=== PATIENT | male | born 1960 | race Hispanic/Latino ===

== ENCOUNTER 2020-10-23 15:27 | Emergency (ER) | payer SELFPAY ==
[2020-10-23] MEDS ORDERED: LIDOCAINE 1% MPF 5 ML VIAL ONE (21:49)
[2020-10-23] MEDS ORDERED: IBUPROFEN 400 MG TAB ONE (21:50)
[2020-10-23] MEDS ORDERED: BUPIVACAINE 0.5% PF 10 ML VIAL ONE (21:50)
[2020-10-23] MEDS ORDERED: HYDROCODONE/APAP 7.5/325 MG TAB ONE (21:55)
--- NOTE | 2020-10-23 22:14 | ER ---
Nurse's Notes [facility] Name: Branden Castellanos Age: 59 yrs Sex: Male : 1960 Arrival Date: 10/23/2020 Time: 15:30 Bed 19 Private MD: Diagnosis: Cellulitis of left finger-with Paronychia of Left Small Finger Presentation: 10/23 15:41 Chief complaint: Patient states: Left hand 5th digit pain and swelling to nailbed area ll1 for 4 days. Tried to poke it with a needle 3 days ago. Site is red, swollen. No drainage at this time. Coronavirus screen: Client denies travel out of the [place] in the last 14 days. At this time, the client does not indicate any symptoms associated with coronavirus-19. Ebola Screen: Patient denies travel to an Ebola-affected area in the 21 days before illness onset. Initial Sepsis Screen: Does the patient meet any 2 criteria? No. Patient's initial sepsis screen is negative. Does the patient have a suspected source of infection? Yes: Skin breakdown/wound. Risk Assessment: Do you want to hurt yourself or someone else? Patient reports no desire to harm self or others. Onset of symptoms was October 20, 2020. 15:41 Method Of Arrival: Ambulatory ll1 15:41 Acuity: VIVIENNE 3 ll1 Historical: - Allergies: 15:41 No Known Allergies; ll1 - PMHx: 15:41 Diabetes - NIDDM; neuropathy; ll1 - PSHx: 15:41 None; ll1 - Immunization history:: Flu vaccine is not up to date. - Social history:: Smoking status: Patient denies any tobacco usage or history of. Screenin:40 Abuse screen: Denies threats or abuse. Denies injuries from another. Nutritional sg screening: No deficits noted. Tuberculosis screening: No symptoms or risk factors identified. Never had TB. Fall Risk None identified. Assessment: 21:40 General: Appears in no apparent distress. uncomfortable, Behavior is calm, cooperative. vg1 Pain: Complains of pain in left little fingernail Pain currently is 8 out of 10 on a pain scale. Quality of pain is described as throbbing, Pain began 4 days ago. Neuro: Level of Consciousness is awake, alert, obeys commands, Oriented to person, place, time, situation. 21:40 Cardiovascular: Patient's skin is warm and dry. Respiratory: Airway is patent vg1 Respiratory effort is even, unlabored, Respiratory pattern is regular, symmetrical. GI: No signs and/or symptoms were reported involving the gastrointestinal system. : No signs and/or symptoms were reported regarding the genitourinary system. EENT: No signs and/or symptoms were reported regarding the EENT system. Derm: Fifth digit on left hand red and swollen. Musculoskeletal: Circulation, motion, and sensation intact. Vital Signs: 15:41 BP 140 / 88; Pulse 73; Resp 17; Temp 98.2; Pulse Ox 100% ; Weight 89.81 kg; Height 5 ll1 ft. 11 in. (180.34 cm); Pain 10/10; 21:40 BP 147 / 92; Pulse 69; Resp 18; Pulse Ox 100% on R/A; vg1 15:41 Body Mass Index 27.62 (89.81 kg, 180.34 cm) ll1 ED Course: 15:30 Patient arrived in ED. rg4 15:40 Arm band placed on. ll1 15:43 Triage completed. ll1 20:49 Mak Calixto PA is PHCP. cp 20:49 Mak Guzmán MD is Attending Physician. cp 20:55 Holly House, DELGADO is Primary Nurse. vg1 22:10 Mart Ibarra MD is Referral Physician. cp 22:40 Patient has correct armband on for positive identification. Bed in low position. Pulse sg ox on. NIBP on. 22:40 No provider procedures requiring assistance completed. Patient did not have IV access sg during this emergency room visit. Administered Medications: 21:45 Drug: Hydrocodone-Acetaminophen (7.5 mg-325 mg) 1 tabs {Note: rass 0.} Route: PO; vg1 22:00 Follow up: Response: No adverse reaction; Pain is decreased sg 21:45 Drug: Ibuprofen 800 mg Route: PO; vg1 22:00 Follow up: Response: No adverse reaction; Pain is decreased sg 21:45 Drug: Lidocaine (1 %) 5 mg Route: Infiltration; vg1 21:45 Drug: Marcaine (0.5 %) 5 ml Volume: 10 ml; Route: Infiltration; vg1 22:40 Drug: Bactrim (160 mg-800 mg (DS) 1 tablet Route: PO; sg 22:50 Follow up: Response: No adverse reaction sg 22:40 Drug: Doxycycline 100 mg Route: PO; sg 22:50 Follow up: Response: No adverse reaction Outcome: 22:13 Discharge ordered by . sergey 22:40 Discharged to home ambulatory. 22:40 Condition: good 22:40 Discharge instructions given to patient, Instructed on discharge instructions, follow up and referral plans. safety practices, Demonstrated understanding of instructions, follow-up care, medications, wound care, Prescriptions given X 4. 22:43 Patient left the ED. vg1 Addendum: 10/27/2020 07:29 Addendum: Culture Results: Positive wound culture. No further action required. Bacteria e b sensitive to prescribed antibiotic. Signatures: Tj Rodríguez, RN RN sg Mak Calixto PA PA cp Garcia, Rubi rg4 Staci Gonzalez Victoria RN RN vg1 Jossy Smith RN RN ll1
--- NOTE | 2020-10-23 22:14 | EDPHYS ---
Physician Documentation [facility] Name: Branden Castellanos Age: 59 yrs Sex: Male : 1960 Arrival Date: 10/23/2020 Time: 15:30 Bed 19 Private MD: ED Physician Mak Guzmán HPI: 10/23 21:00 This 59 yrs old Male presents to ER via Ambulatory with complaints of Finger cp Swelling. 21:00 The patient or guardian reports pain, swelling, tenderness. The complaints affect the cp distal phalanx left small finger. 21:00 Context: resulted from an unknown cause. Onset: The symptoms/episode began/occurred 4 cp day(s) ago. Associated signs and symptoms: Pertinent negatives: cyanosis distally, decreased sensation distally, fever. Historical: - Allergies: 15:41 No Known Allergies; ll1 - PMHx: 15:41 Diabetes - NIDDM; neuropathy; ll1 - PSHx: 15:41 None; ll1 - Immunization history:: Flu vaccine is not up to date. - Social history:: Smoking status: Patient denies any tobacco usage or history of. ROS: 21:10 MS/extremity: Positive for erythema, pain, swelling, tenderness, warmth, of the distal cp phalanx left small finger, Negative for injury or acute deformity, paresthesias. 21:10 Constitutional: Negative for fever. cp 21:10 All other systems are negative. Exam: 21:15 Constitutional: The patient appears in no acute distress, alert, awake, non-toxic, well cp developed, well nourished. 21:15 Head/Face: Normocephalic, atraumatic. cp 21:15 Chest/axilla: Inspection: normal. 21:15 Cardiovascular: Rate: normal. 21:15 Respiratory: the patient does not display signs of respiratory distress, Respirations: normal, no use of accessory muscles, labored breathing, is not present. 21:15 Skin: abscess, that is small, of the proximal to nail dorsum left small finger, with fluctuance, that is mild, with surrounding cellulitis, that is mild. Vital Signs: 15:41 BP 140 / 88; Pulse 73; Resp 17; Temp 98.2; Pulse Ox 100% ; Weight 89.81 kg; Height 5 ll1 ft. 11 in. (180.34 cm); Pain 10/10; 21:40 BP 147 / 92; Pulse 69; Resp 18; Pulse Ox 100% on R/A; vg1 15:41 Body Mass Index 27.62 (89.81 kg, 180.34 cm) ll1 Procedures: 22:15 I \T\ D: Incision and drainage was performed for an abscess of the proximal to nail cp dorsum left small finger Prepped with Betadine, Anesthetized with digital block using 5 ccs of 1% lidocaine w/o epi and 0.5% marcaine. Incised with #11 blade. Drained small amount purulent fluid. Dressing: sterile 4x4 gauze, the patient tolerated the procedure well. MDM: 20:51 Patient medically screened. [facility] 22:12 Data reviewed: vital signs, nurses notes, and as a result, I will discharge patient. 22:12 Response to treatment: the patient's symptoms have markedly improved after treatment, and as a result, I will discharge patient. 10/23 22:23 Order name: Wound Culture 10/23 20:53 Order name: I\T\D Setup; Complete Time: 22:17 cp Administered Medications: 21:45 Drug: Hydrocodone-Acetaminophen (7.5 mg-325 mg) 1 tabs {Note: rass 0.} Route: PO; vg1 22:00 Follow up: Response: No adverse reaction; Pain is decreased sg 21:45 Drug: Ibuprofen 800 mg Route: PO; vg1 22:00 Follow up: Response: No adverse reaction; Pain is decreased sg 21:45 Drug: Lidocaine (1 %) 5 mg Route: Infiltration; vg1 21:45 Drug: Marcaine (0.5 %) 5 ml Volume: 10 ml; Route: Infiltration; vg1 22:40 Drug: Bactrim (160 mg-800 mg (DS) 1 tablet Route: PO; sg 22:50 Follow up: Response: No adverse reaction sg 22:40 Drug: Doxycycline 100 mg Route: PO; sg 22:50 Follow up: Response: No adverse reaction sg Disposition: 22:45 Chart complete. 10/24 05:39 Co-signature as Attending Physician, Mak Guzmán MD I agree with the assessment and [facility] plan of care. Disposition: 10/23/20 22:13 Discharged to Home. Impression: Cellulitis of left finger - with Paronychia of Left Small Finger. - Condition is Stable. - Discharge Instructions: Cellulitis, Adult, Paronychia. - Prescriptions for Ibuprofen 800 mg Oral Tablet - take 1 tablet by ORAL route every 8 hours As needed take with food; 30 tablet. Tylenol- Codeine #3 300-30 mg Oral Tablet - take 2 tablets by ORAL route every 8 hours As needed; 15 tablet. Doxycycline Hyclate 100 mg Oral Tablet - take 1 tablet by ORAL route every 12 hours; 20 tablet. Bactrim DS 800- 160 mg Oral Tablet - take 1 tablet by ORAL route every 12 hours for 10 days; 20 tablet. - Work release form, Medication Reconciliation Form, Thank You Letter, Antibiotic Education, Prescription Opioid Use form. - Follow up: Mart Ibarra MD; When: 1 - 2 days; Reason: Worsening of condition. - Problem is new. - Symptoms have improved. Signatures: Dispatcher [employer] EDMS Tj Rodríguez RN RN Mak Pressley MD MD cha Page, Corey, PA PA cp Holly House RN RN vg1 Jossy Smith RN RN ll1 Corrections: (The following items were deleted from the chart) 10/23 22:43 22:13 10/23/2020 22:13 Discharged to Home. Impression: Cellulitis of left finger - with vg1 Paronychia of Left Small Finger. Condition is Stable. Forms are Medication Reconciliation Form, Thank You Letter, Antibiotic Education, Prescription Opioid Use. Follow up: Mart Ibarra; When: 1 - 2 days; Reason: Worsening of condition. Problem is new. Symptoms have improved. cp
[2020-10-23] MEDS ORDERED: SMZ./TMP. 800/160 MG TABLET ONE (22:51)
[2020-10-23] MEDS ORDERED: DOXYCYCLINE 100 MG CAP PO ONE (22:51)
== END 2020-10-23 22:43 | disposition home or self-care (01) ==
LOC: ER 15:27
PROC: 0J9K0ZZ Drainage of Left Hand Subcutaneous Tissue and Fascia, Open Approach (ICD-10-PCS; principal; 2020-10-23)
DX: L03.012 Cellulitis of left finger (principal)
CPT/HCPCS: 87070; 87077; 87186; 87205; 99283

== ENCOUNTER 2021-03-29 11:43 | Inpatient (IN) | payer SELFPAY ==
[2021-03-29 13:00] LABS: Absolute Lymphocytes (CBC) 1.7 K/uL (0.7-4.9); Basophils % 0.5 % (0-1.3); Hematocrit 45.6 % (39.6-49.0); Lymphocytes % 11.4 % (15.3-44.8); MPV 8.6 fL (7.6-11.3); RBC Red Blood Cell Count 5.33 M/uL (4.33-5.43)
[2021-03-29] MEDS ORDERED: ONDANSETRON 4 MG/2 ML VIAL ONE (13:04)
[2021-03-29] MEDS ORDERED: MEPERIDINE HCL 25 MG/ML SYR ONE (13:05)
[2021-03-29] MEDS ORDERED: NA CHLORIDE 0.9% 1,000 ML ONE ×2 (13:05→16:00)
[2021-03-29 13:17] LABS: Potassium 3.7 mmol/L (3.5-5.1)
[2021-03-29 13:19] LABS: Protime INR 1.21
[2021-03-29 13:40] LABS: Platelet Estimate ADEQ
[2021-03-29 13:41] LABS: Blood Morphology Comment NOT SEEN (NOT SEEN)
[2021-03-29 14:11] LABS: Urine Blood Trace-lysed (Negative); Urine Glucose 2+ (Negative); Urine Protein 1+ (Negative)
--- NOTE | 2021-03-29 14:20 | RAD REPORT ---
EXAM DESCRIPTION: US - Scrotum Testicles - 03/29/2021 2:04 pm CLINICAL HISTORY: right testicular pain and fever COMPARISON: No comparisons FINDINGS: No mass identified within either testicle. Blood flow was demonstrated within each testicl e. Right-sided testicle shows increased blood flow relative the left. There is an enlarged hyperemic right epididymis. No significant hydrocele. No extratesticular mass or hernia demonstrated. IMPRESSION: Right epididymo-orchitis pattern.
--- NOTE | 2021-03-29 14:23 | RAD REPORT ---
EXAM DESCRIPTION: CT - Abdomen Pelvis W Contrast - 03/29/2021 1:55 pm CLINICAL HISTORY: fever, lower abd pain COMPARISON: No comparisons TECHNIQUE: Biphasic, helical CT imaging of the abdomen and pelvis was performed following 100 ml non -ionic IV contrast. No oral contrast given. All CT scans are performed using dose optimization technique as appropriate and may include automated exposure control or mA/KV adjustment according to patient size. FINDINGS: No suspicious findings in the lung bases. Mild diffuse fatty infiltration of the liver seen. No focal liver lesion. No portal vein abnormality. Spleen and pancreas show no suspicious findings. Gallbladder and biliary tree are also without suspi cious finding. Symmetric renal function is seen with no hydronephrosis or suspicious renal mass. No pyelonephritis o r acute parenchymal process. Multiple left renal cysts are present without suspicious characteristic. Urinary bladder is only partially filled. No gross abnormality. No gross prostate gland abnormality seen. Right seminal vesicle enlarged relative to the left. No abnormal congestion or edema. No adrena l abnormalities. No dilated bowel loops or bowel wall thickening. Appendix is normal. Only minimal amounts of divertic ulosis present. No free air, free fluid or inflammatory stranding. Small fat filled right inguinal h ernia present. No mass or bulky lymphadenopathy. No suspicious bony findings. Disc and bone degenerative changes are present. No clearly pathologic pr ocess seen. IMPRESSION: Contrast enhanced CT abdomen and pelvis showing no acute or emergent finding. Diffuse fatty infiltration of the liver.
[2021-03-29 14:30] LABS: Urine Bacteria <20 /HPF (NONE SEEN); Urine RBC <5 /HPF (NONE SEEN)
[2021-03-29] MEDS ORDERED: CIPROFLOXACIN 400mg IV 400 MG/200 ML BAG IV ONE (14:39)
[2021-03-29] MEDS ORDERED: CEFTRIAXONE/SWI 1gm 1 GM/10 ML SYR ONE (14:39)
--- NOTE | 2021-03-29 14:49 | ER ---
Nurse's Notes [facility] Name: Branden Castellanos Age: 60 yrs Sex: Male : 1960 Arrival Date: 03/29/2021 Time: 11:47 Bed 17 Private MD: Diagnosis: Epididymo-orchitis;Dehydration;Sepsis, unspecified organism Presentation: 03/29 12:05 Chief complaint: Patient states: Right testicular pain, lower abdomen pain. Currently rb3 being treated for a bladder infection, but it is not getting better. 12:05 Coronavirus screen: At this time, the client does not indicate any symptoms associated rb3 with coronavirus-19. Ebola Screen: Patient denies travel to an Ebola-affected area in the 21 days before illness onset. Initial Sepsis Screen:. Risk Assessment: Do you want to hurt yourself or someone else? Patient reports no desire to harm self or others. 12:05 Method Of Arrival: Wheelchair rb3 12:05 Acuity: VIVIENNE 3 rb3 12:05 Initial Sepsis Screen: Does the patient meet any 2 criteria? No. Patient's initial rb3 sepsis screen is negative. Does the patient have a suspected source of infection? No. Patient's initial sepsis screen is negative. Onset of symptoms is unknown. Triage Assessment: 12:05 General: Appears uncomfortable, Behavior is calm, cooperative, Reports fever for. Pain: rb3 Complains of pain in right testicle, lower abdomen, right groin Pain radiates to right leg Pain currently is 10 out of 10 on a pain scale. Neuro: Level of Consciousness is awake, alert, obeys commands, Oriented to person, place, time, situation. Cardiovascular: Patient's skin is warm and dry. Respiratory: Airway is patent Respiratory effort is even, unlabored, Respiratory pattern is regular, symmetrical. GI: Reports nausea. : Reports pain testicle, with urination, Dribbles when urinating. Historical: - Allergies: 12:05 No Known Allergies; rb3 - PMHx: 12:05 Diabetes - NIDDM; neuropathy; Bladder infections; rb3 - PSHx: 12:05 Tonsillectomy; rb3 - Immunization history:: Adult Immunizations up to date. - Social history:: Smoking status: Patient/guardian denies using. - Family history:: not pertinent. - Hospitalizations: : No recent hospitalization is reported. Screenin:05 Abuse screen: Denies threats or abuse. Nutritional screening: No deficits noted. rb3 Tuberculosis screening: No symptoms or risk factors identified. Fall Risk None identified. Assessment: 12:05 General: See triage assessment. rb3 13:00 Reassessment: Patient appears in no apparent distress at this time. Patient and/or rb3 family updated on plan of care and expected duration. Pain level reassessed. Patient is alert, oriented x 3, equal unlabored respirations, skin warm/dry/pink. 14:00 Reassessment: Patient appears in no apparent distress at this time. No changes from rb3 previously documented assessment. 15:00 Reassessment: Patient appears in no apparent distress at this time. Patient and/or rb3 family updated on plan of care and expected duration. Pain level reassessed. Patient is alert, oriented x 3, equal unlabored respirations, skin warm/dry/pink. 15:45 Reassessment: Dr. Madhav Douglas at the pt. bedside. rb3 16:00 Reassessment: Patient appears in no apparent distress at this time. Patient and/or rb3 family updated on plan of care and expected duration. Pain level reassessed. Patient is alert, oriented x 3, equal unlabored respirations, skin warm/dry/pink. 16:48 Reassessment: Patient appears in no apparent distress at this time. No changes from rb3 previously documented assessment. 17:00 Reassessment: Gave report to DELGADO Black. Information from the [facility] was given. All rb3 questions asked and answered. 17:34 Reassessment: Patient appears in no apparent distress at this time. Patient and/or rb3 family updated on plan of care and expected duration. Pain level reassessed. Patient is alert, oriented x 3, equal unlabored respirations, skin warm/dry/pink. Vital Signs: 12:05 BP 120 / 73; Pulse 88; Resp 20; Pulse Ox 99% ; rb3 13:00 BP 129 / 78; Pulse 93; Resp 20; Pulse Ox 98% ; Weight 88 kg; Height 5 ft. 8 in. (172.72 rb3 cm); 14:00 BP 131 / 53; Pulse 82; Resp 22; Pulse Ox 100% ; rb3 15:00 BP 127 / 72; Pulse 82; Resp 16; Pulse Ox 98% ; rb3 16:00 BP 139 / 73; Pulse 78; Resp 21; Temp 98.1; Pulse Ox 100% ; rb3 16:48 BP 134 / 7; Pulse 81; Resp 21; Temp 98.1; Pulse Ox 99% ; rb3 17:34 BP 122 / 70; Pulse 82; Resp 19; Pulse Ox 97% on R/A; rb3 13:00 Body Mass Index 29.50 (88.00 kg, 172.72 cm) rb3 ED Course: 11:47 Patient arrived in ED. am2 12:04 Robert Douglas MD is Attending Physician. rn 12:05 Arm band placed on right wrist. rb3 12:05 Patient has correct armband on for positive identification. Bed in low position. Call rb3 light in reach. Side rails up X 1. conveyor monitor on. Pulse ox on. NIBP on. Warm blanket given. 12:21 Mable Chua RN is Primary Nurse. rb3 12:24 Triage completed. rb3 12:50 Inserted saline lock: 20 gauge in right antecubital area, using aseptic technique. dh4 Blood collected. 13:55 CT Abd/Pelvis - IV Contrast Only In Process Unspecified. EDMS 14:04 US Scrotum Testicles In Process Unspecified. EDMS 14:48 Madhav Douglas MD is Hospitalizing Provider. rn 17:35 No provider procedures requiring assistance completed. Patient admitted, IV remains in rb3 place. Administered Medications: 12:54 Drug: Demerol (meperidine) 25 mg Route: IVP; Site: right antecubital; rb3 13:10 Follow up: Response: No adverse reaction; Pain is decreased rb3 12:54 Drug: NS 0.9% 1000 ml Route: IV; Rate: 1000 ml; Site: right antecubital; rb3 12:54 Drug: Zofran (Ondansetron) 4 mg Route: IVP; Site: right antecubital; rb3 13:08 Follow up: Response: No adverse reaction rb3 14:20 Drug: Rocephin (cefTRIAXone) 1 grams Route: IV; Rate: calculated rate; Site: right aa5 antecubital; 14:35 Follow up: Response: No adverse reaction; IV Status: Completed infusion rb3 14:25 Drug: Cipro (ciprofloxacin) 400 mg Volume: 200 ml; Route: IVPB; Infused Over: 60 mins; aa5 Site: right antecubital; 15:34 Follow up: Response: No adverse reaction; IV Status: Completed infusion rb3 15:44 Drug: NS 0.9% 1000 ml Route: IV; Rate: 1000 ml; Site: right antecubital; rb3 16:52 Follow up: IV Status: Completed infusion rb3 Outcome: 14:48 Decision to Hospitalize by Provider. rn 17:35 Admitted to Tele accompanied by tech, via stretcher, room 410, with chart, Report rb3 called to DELGADO Black 17:35 Condition: stable 17:35 Instructed on the need for admit. 17:39 Patient left the ED. rb3 Signatures: Dispatcher [employer] EDMS Robert Douglas MD MD rn Calderon, Audri RN RN aa5 Humera Hanson 2 Bean Flores 4 Mable Chua, RN RN rb3 Corrections: (The following items were deleted from the chart) 17:00 13:00 BP 129 / 78; Pulse 93bpm; Resp 20bpm; Pulse Ox 98%; rb3 rb3
--- NOTE | 2021-03-29 14:49 | EDPHYS ---
Physician Documentation [facility] Name: Branden Castellanos Age: 60 yrs Sex: Male : 1960 Arrival Date: 03/29/2021 Time: 11:47 Bed 17 Private MD: ED Physician Robert Douglas HPI: 03/29 13:21 This 60 yrs old Male presents to ER via Wheelchair with complaints of rn Testicular Pain, Groin Pain. 13:21 The patient presents with scrotal pain, of the right side, without swelling, rn tenderness, urinary symptoms. 13:24 Onset: The symptoms/episode began/occurred 1 week(s) ago. Modifying factors: the rn symptoms are aggravated by. Modifying factors: the symptoms are aggravated by urinating. Associated signs and symptoms: Pertinent positives: abdominal pain, dysuria, fever, nausea. Severity of symptoms: At their worst the symptoms were moderate, in the emergency department the symptoms are unchanged. The patient has not experienced similar symptoms in the past. The patient has been recently seen by a physician:. Reports being treated for UTI after virtual visit this past week, taking keflex, reports fever/chills/right testicular pain, abd pain, nausea. No trauma. + hx of UTI. . Historical: - Allergies: 12:05 No Known Allergies; rb3 - PMHx: 12:05 Diabetes - NIDDM; neuropathy; Bladder infections; rb3 - PSHx: 12:05 Tonsillectomy; rb3 - Immunization history:: Adult Immunizations up to date. - Social history:: Smoking status: Patient/guardian denies using. - Family history:: not pertinent. - Hospitalizations: : No recent hospitalization is reported. ROS: 13:24 Constitutional: + fever and chills Eyes: Negative for injury, pain, redness, and nursery rn, ENT: Negative for injury, pain, and discharge, Neck: Negative for injury, pain, and swelling, Cardiovascular: Negative for chest pain, palpitations, and edema, Respiratory: Negative for shortness of breath, cough, wheezing, and pleuritic chest pain, Abdomen/GI: + lower abd pain and nausea Back: Negative for injury and pain, : Negative for injury, bleeding, + right testicular pain MS/Extremity: Negative for injury and deformity, Skin: Negative for injury, rash, and discoloration, Neuro: Negative for headache, numbness, tingling, and seizure. Exam: 13:24 Constitutional: This is a well developed, well nourished patient who is awake, rn alert,sitting in wheelchair, appears weak all over Head/Face: Normocephalic, atraumatic. Eyes: Pupils equal round and reactive to light, extra-ocular motions intact. Lids and lashes normal. Conjunctiva and sclera are non-icteric and not injected. Cornea within normal limits. Periorbital areas with no swelling, redness, or edema. ENT: dry MM Cardiovascular: Regular rate and rhythm. No pulse deficits. Respiratory: No increased work of breathing, no retractions or nasal flaring. Abdomen/GI: Soft, + mild lower abd tenderness Skin: Warm, dry with normal turgor. Normal color with no rashes, no lesions, and no evidence of cellulitis. MS/ Extremity: Pulses equal, no cyanosis. Neurovascular intact. Full, normal range of motion. Equal circumference. Neuro: Awake and alert, GCS 15, oriented to person, place, time, and situation. Cranial nerves II-XII grossly intact. Motor strength 4/5 in all extremities. Sensory grossly intact. 13:33 ECG was reviewed by the Attending Physician. rn Vital Signs: 12:05 BP 120 / 73; Pulse 88; Resp 20; Pulse Ox 99% ; rb3 13:00 BP 129 / 78; Pulse 93; Resp 20; Pulse Ox 98% ; Weight 88 kg; Height 5 ft. 8 in. (172.72 rb3 cm); 14:00 BP 131 / 53; Pulse 82; Resp 22; Pulse Ox 100% ; rb3 15:00 BP 127 / 72; Pulse 82; Resp 16; Pulse Ox 98% ; rb3 16:00 BP 139 / 73; Pulse 78; Resp 21; Temp 98.1; Pulse Ox 100% ; rb3 16:48 BP 134 / 7; Pulse 81; Resp 21; Temp 98.1; Pulse Ox 99% ; rb3 17:34 BP 122 / 70; Pulse 82; Resp 19; Pulse Ox 97% on R/A; rb3 13:00 Body Mass Index 29.50 (88.00 kg, 172.72 cm) rb3 MDM: 12:04 Patient medically screened. rn 13:33 ED course: U/S shows acute epididymitis, good blood flow to testes. . rn 14:46 Differential diagnosis: UTI, prostatitis, urethritis, epididymitis. Data reviewed: rn vital signs, nurses notes, lab test result(s), radiologic studies, CT scan, ultrasound, and as a result, I will admit patient. Counseling: I had a detailed discussion with the patient and/or guardian regarding: the historical points, exam findings, and any diagnostic results supporting the discharge/admit diagnosis, lab results, radiology results, the need for further work-up and treatment in the hospital. Response to treatment: the patient's symptoms have mildly improved after treatment, and as a result, I will admit patient. Admission orders: after a detailed discussion of the patient's condition and case, the admit orders are written by me. ED course: Pt with elevated lactate and procal, + epididymitis, will admit to Dr. Douglas for further care. . 03/29 12:23 Order name: Urine Culture 03/29 12:23 Order name: Basic Metabolic Panel; Complete Time: 13:47 03/29 12:23 Order name: Blood Culture Adult (2) 03/29 12:23 Order name: CBC with Diff; Complete Time: 13:47 03/29 12:23 Order name: Lactate; Complete Time: 13:47 rn 03/29 12:23 Order name: Procalcitonin; Complete Time: 13:47 rn 03/29 12:23 Order name: Protime (+inr); Complete Time: 13:47 03/29 12:23 Order name: Ptt, Activated; Complete Time: 13:47 rn 03/29 12:23 Order name: Urine Microscopic Only rn 03/29 13:39 Order name: Manual Differential; Complete Time: 13:47 EDMT 03/29 14:10 Order name: Urine Dipstick-Ancillary; Complete Time: 14:24 EDMT 03/29 14:36 Order name: Glucose, Ancillary Testing EDMT 03/29 12:23 Order name: Cardiac monitoring; Complete Time: 13:38 rn 03/29 12:23 Order name: EKG - Nurse/Tech; Complete Time: 13:38 rn 03/29 12:23 Order name: IV Saline Lock - Large Bore; Complete Time: 12:50 rn 03/29 12:23 Order name: Labs collected and sent; Complete Time: 12:50 rn 03/29 12:23 Order name: O2 Per Protocol; Complete Time: 12:50 rn 03/29 12:23 Order name: US Scrotum Testicles; Complete Time: 14:24 rn 03/29 12:23 Order name: CT Abd/Pelvis - IV Contrast Only; Complete Time: 14:24 rn 03/29 15:33 Order name: SARS-COV-2 RT PCR EDMS 03/29 17:24 Order name: Lactate Sepsis 2 HR Follow-up EDMT 03/29 12:23 Order name: O2 Sat Monitoring; Complete Time: 12:50 rn 03/29 12:23 Order name: Urine Dipstick-Ancillary (obtain specimen); Complete Time: 15:30 rn EC:33 Rate is 94 beats/min. Rhythm is regular. Left axis deviation noted. QRS is positive in rn lead I and negative in lead aVF. CT interval is normal. QRS interval is prolonged. QT interval is normal. No Q waves. T waves are Normal. No ST changes noted. Clinical impression: NSR w/ Non-specific ST/T Changes. Interpreted by me. Reviewed by me. Administered Medications: 12:54 Drug: Demerol (meperidine) 25 mg Route: IVP; Site: right antecubital; rb3 13:10 Follow up: Response: No adverse reaction; Pain is decreased rb3 12:54 Drug: NS 0.9% 1000 ml Route: IV; Rate: 1000 ml; Site: right antecubital; rb3 12:54 Drug: Zofran (Ondansetron) 4 mg Route: IVP; Site: right antecubital; rb3 13:08 Follow up: Response: No adverse reaction rb3 14:20 Drug: Rocephin (cefTRIAXone) 1 grams Route: IV; Rate: calculated rate; Site: right aa5 antecubital; 14:35 Follow up: Response: No adverse reaction; IV Status: Completed infusion rb3 14:25 Drug: Cipro (ciprofloxacin) 400 mg Volume: 200 ml; Route: IVPB; Infused Over: 60 mins; aa5 Site: right antecubital; 15:34 Follow up: Response: No adverse reaction; IV Status: Completed infusion rb3 15:44 Drug: NS 0.9% 1000 ml Route: IV; Rate: 1000 ml; Site: right antecubital; rb3 16:52 Follow up: IV Status: Completed infusion rb3 Disposition: 03/29/21 14:48 Hospitalization ordered by Madhav Douglas for Inpatient Admission. Preliminary diagnosis are Epididymo-orchitis, Dehydration, Sepsis, unspecified organism. - Bed requested for Telemetry/MedSurg (Inpatient). - Status is Inpatient Admission. rb3 - Condition is Stable. - Problem is new. - Symptoms have improved. Signatures: Dispatcher [employer] EDMS Robert Douglas MD MD rn Calderon, Audri RN RN aa5 Staci Gonzalez Rebecca RN RN rb3 Corrections: (The following items were deleted from the chart) 13:39 13:04 CBC Smear Scan ordered. EDMT EDMS 14:24 12:55 CORONAVIRUS+MR.LAB.BRZ ordered. EDMT EDMS 14:51 12:23 Accucheck ordered. rn rb3 15:30 14:48 Hospitalization Ordered by Madhav Douglas MD for Inpatient Admission. Preliminary rn diagnosis is Epididymo-orchitis; Dehydration. Bed requested for Telemetry/MedSurg (Inpatient). Status is Inpatient Admission. Condition is Stable. Problem is new. Symptoms have improved. rn 16:41 15:30 03/29/2021 14:48 Hospitalization Ordered by Madhav Douglas MD for Inpatient eb Admission. Preliminary diagnosis is Epididymo-orchitis; Dehydration; Sepsis, unspecified organism. Bed requested for Telemetry/MedSurg (Inpatient). Status is Inpatient Admission. Condition is Stable. Problem is new. Symptoms have improved. rn 17:39 16:41 03/29/2021 14:48 Hospitalization Ordered by Madhav Douglas MD for Inpatient rb3 Admission. Preliminary diagnosis is Epididymo-orchitis; Dehydration; Sepsis, unspecified organism. Bed requested for Telemetry/MedSurg (Inpatient). Status is Inpatient Admission. Condition is Stable. Problem is new. Symptoms have improved. eb
--- NOTE | 2021-03-29 16:12 | P.HP ---
Certification for Inpatient Patient admitted to: Inpatient With expected LOS: >2 Midnights Practitioner: I am a practitioner with admitting privileges, knowledge of patient current condition, hospital course, and medical plan of care. Services: Services provided to patient in accordance with Admission requirements found in Title 42 Section 412.3 of the Code of Federal Regulations Patient History Date of Service: 03/29/21 Reason for admission: Epididymo-orchitis, sepsis History of Present Illness: 60-year-old male, PMH: Uke-fjaccma-mcaqmcngi DM 2, neuropathy, prior bladder infections Patient presents to the ED after progressively worsening dysuria, suprapubic pain, and 3 days of scrotal swelling and right testicular pain. Patient states he was otherwise in his usual state of health when he began to have dysuria, followed by weakness and decreased appetite. 3 days ago he had a telemedicine appointment with a nurse practitioner who prescribed the patient cephalexin 500 mg b.i.d.. He took these as prescribed, but continued to have worsening symptoms. He reports a scrotal pain was severe enough to where he did not want to walk or get out of bed. Patient reports a Tmax of 111 at home. He endorses nausea and vomiting, no diarrhea/constipation. Last bowel movement was yesterday evening. No chest pain, no shortness of breath, no new weakness. He has not been recently sexually active. No history of kidney stones. He reports 5 "Bladder infections" in his lifetime, last 1 was approximately 5 years ago. In the ED, he was noted to have normal blood pressure, slight tachycardia in the 90s. CT abdomen/pelvis with no acute or emergent finding, no hydronephrosis, multiple left renal cysts, diffuse fatty liver. Scrotal ultrasound: Blood flow noted in bilateral testicles, otherwise consistent with a right epididymo- orchitis pattern. Lactate 2.1 Blood in urine cultures were obtained, patient was given Rocephin and ciprofloxacin in the ER, sepsis bolus was also initiated in the ER. Home medications list reviewed: Yes - Past Medical/Surgical History Diabetic: Yes -: Diabetes mellitus type 2, [id number] -: Neuropathy -: Insomnia -: Tonsillectomy - Family History Mother -: Heart disease, Diabetes - Social History Smoking Status: Former smoker (Quit 6 months ago, occasional smoker) Alcohol use: No Place of Residence: Home Review of Systems 10-point ROS is otherwise unremarkable Physical Examination - Physical Exam General: Alert, Oriented x3, Mild distress (In pain) HEENT: Mucous membr. moist/pink, Sclerae nonicteric Neck: Supple, No LAD Respiratory: Clear to auscultation bilaterally, Normal air movement Cardiovascular: No edema, Regular rate/rhythm, Normal S1 S2 Gastrointestinal: Soft and benign, Non-distended, Tenderness (Moderate suprapubic) Musculoskeletal: No erythema, No tenderness Integumentary: No rashes, No significant lesion Neurological: Normal speech, Normal strength at 5/5 x4 extr, Normal affect - Studies Laboratory Data (last 24 hrs) 03/29/21 12:46: PT 14.0 H, INR 1.21, APTT 26.6 03/29/21 12:46: WBC 14.50 H, Hgb 15.4, Hct 45.6, Plt Count 200 03/29/21 12:46: Sodium 133 L, Potassium 3.7, BUN 16, Creatinine 0.89, Glucose 330 H Assessment and Plan - Advance Directives Does patient have a Living Will: No Does patient have a Durable POA for Healthcare: No Physician Review Additional Text: Problem list Sepsis secondary to Right epididymo-orchitis Diabetes mellitus type 2, noninsulin dependent with neuropathy Insomnia -tachycardia, leukocytosis, and reported fever, sirs 3/4 abdominal with infectious sores consistent with sepsis -blood pressure within normal limits, no end-organ damage, did not suspect severe sepsis or septic shock at this time -patient appears dry, reports minimal p.o. intake for several days, receiving sepsis bolus -treat with Levaquin and Rocephin -liquid diet, advance as tolerated, patient reports some nausea, Zofran ordered -IV fluids at 125cc/hr after sepsis bolus complete -follow up repeat lactate -stable for med/surg VTE: lovenox Code: full Dispo: anticipate dc home in 48-72 hrs Time Spent Managing Pts Care (In Minutes): 60
[2021-03-29] MEDS ORDERED: POTASSIUM CL SA 10 MEQ TAB PO ONE (17:04)
[2021-03-29 17:17] VITALS: BMI 29.5
[2021-03-29] MEDS: NA CHLORIDE 0.9% 1,000 ML IV SCH (17:56)
[2021-03-29] MEDS: INSULIN -REGULAR HUMAN 50 UNIT/0.5 ML ML SQ SCH ×2 (18:09→20:47)
[2021-03-29] MEDS: HYDROMORPHONE HCL 0.5 MG/0.5 ML INJ IV PRN (20:03)
[2021-03-29] MEDS: DOXEPIN HCL 25 MG CAP PO SCH (20:47)
[2021-03-30] MEDS: HYDROCODONE/APAP 5/325 MG TAB PO PRN ×3 (00:27→16:43)
[2021-03-30] MEDS: ACETAMINOPHEN 500 MG TAB PO PRN (00:28)
--- NOTE | 2021-03-30 01:54 | P.INFCA ---
Sepsis Focused Assessment - Focused Assessment Complete? Sepsis Focused Assessment Completed?: Yes - Sepsis Screen Result Severe Sepsis: Negative Septic Shock: Negative - Evaluation Current stage of sepsis: Ruled out Reason for ruling out sepsis: Lactate imp, VSS, no end organ dmg - Vital Signs Reviewed: Yes Temperature: 100.9 F
[2021-03-30] MEDS: NA CHLORIDE 0.9% 1,000 ML IV SCH ×4 (03:22→23:30)
[2021-03-30 06:19] LABS: Absolute Lymphocytes (CBC) 1.6 K/uL (0.7-4.9); Basophils % 0.5 % (0-1.3); Hematocrit 41.5 % (39.6-49.0); Lymphocytes % 14.1 % (15.3-44.8); MPV 8.6 fL (7.6-11.3); RBC Red Blood Cell Count 4.92 M/uL (4.33-5.43)
[2021-03-30 06:44] LABS: ALT/SGPT 33 U/L (12-78); AST/SGOT 23 U/L (15-37); Albumin 2.6 g/dL (3.4-5.0); Alkaline Phosphatase 85 U/L (45-117); BUN Blood Urea Nitrogen 8 mg/dL (7-18); Bicarbonate 23 mmol/L (21-32); Bilirubin Total 1.3 mg/dL (0.2-1.0); Glucose Level 214 mg/dL (74-106); Potassium 3.6 mmol/L (3.5-5.1); Protein, Total 6.3 g/dL (6.4-8.2); Sodium Level 136 mmol/L (136-145)
[2021-03-30] MEDS: INSULIN -REGULAR HUMAN 50 UNIT/0.5 ML ML SQ SCH ×4 (07:30→21:53)
[2021-03-30] MEDS: ENOXAPARIN 40 MG/0.4 ML SQ SCH (08:30)
[2021-03-30] MEDS: CEFTRIAXONE/SWI 1gm 1 GM/10 ML SYR IV SCH (08:33)
[2021-03-30] MEDS: Levofloxacin 750mg IV 750 MG/150 ML BAG IV SCH (08:34)
[2021-03-30] MEDS ORDERED: CEFTRIAXONE 1 GM/NS 50 ML 1 GM/50 ML BAG IV SCH (09:00)
[2021-03-30] MEDS ORDERED: POTASSIUM CL SA 10 MEQ TAB PO ONE (09:00)
--- NOTE | 2021-03-30 10:59 | P.PN ---
Subjective Date of Service: 03/30/21 Chief Complaint: Epididymo-orchitis, sepsis Subjective: Improving (feels better, pain improved but still severe at times, was able to walk to bathroom) Review of Systems 10-point ROS is otherwise unremarkable Physical Examination - Vital Signs Temperature: 98.6 F Blood Pressure: 130/62 Pulse: 84 Respirations: 16 Pulse Ox (%): 99 - Studies Laboratory Data (last 24 hrs) 03/29/21 12:46: PT 14.0 H, INR 1.21, APTT 26.6 03/29/21 12:46: WBC 14.50 H, Hgb 15.4, Hct 45.6, Plt Count 200 03/29/21 12:46: Sodium 133 L, Potassium 3.7, BUN 16, Creatinine 0.89, Glucose 330 H Assessment & Plan Physician Review Additional Text: Physical Exam General: Alert, Oriented x3, Mild distress (In pain) HEENT: Mucous membr. moist/pink, Sclerae nonicteric Respiratory: Clear to auscultation bilaterally, Normal air movement Cardiovascular: No edema, Regular rate/rhythm, Normal S1 S2 Gastrointestinal: Soft and benign, Non-distended, moderate suprapubic tenderness : erythematous scrotum, R scrotum swollen/tender, warm Neurological: Normal speech, Normal strength at 5/5 x4 extr, Normal affect Problem list Sepsis secondary to Right epididymo-orchitis Diabetes mellitus type 2, noninsulin dependent with neuropathy Insomnia -sepsis without severe sepsis -vitals stable -tolerating PO, decrease IVF, advance diet as tolerated -continue Levaquin and Rocephin -slowly improving -f/u cultures -glc high, check a1c, SSI VTE: lovenox Code: full Dispo: anticipate dc home in ~48hrs Time Spent Managing Pts Care (In Minutes): 35
[2021-03-30] MEDS: DOXEPIN HCL 25 MG CAP PO SCH (21:53)
[2021-03-30] MEDS ORDERED: DONEPEZIL HCL 5 MG TAB ONE (22:27)
[2021-03-31] MEDS: HYDROMORPHONE HCL 0.5 MG/0.5 ML INJ IV PRN (00:08)
[2021-03-31 04:16] LABS: Absolute Lymphocytes (CBC) 1.8 K/uL (0.7-4.9); Basophils % 0.4 % (0-1.3); Hematocrit 38.1 % (39.6-49.0); Lymphocytes % 14.9 % (15.3-44.8); MPV 8.4 fL (7.6-11.3); RBC Red Blood Cell Count 4.51 M/uL (4.33-5.43)
[2021-03-31 04:30] LABS: ALT/SGPT 30 U/L (12-78); AST/SGOT 24 U/L (15-37); Albumin 2.4 g/dL (3.4-5.0); Alkaline Phosphatase 89 U/L (45-117); BUN Blood Urea Nitrogen 7 mg/dL (7-18); Bicarbonate 22 mmol/L (21-32); Glucose Level 174 mg/dL (74-106); Potassium 3.7 mmol/L (3.5-5.1); Protein, Total 6.3 g/dL (6.4-8.2); Sodium Level 140 mmol/L (136-145)
[2021-03-31] MEDS: ACETAMINOPHEN 500 MG TAB PO PRN (05:01)
--- NOTE | 2021-03-31 07:23 | P.PN ---
Subjective Date of Service: 03/31/21 Chief Complaint: Epididymo-orchitis, sepsis Subjective: Improving (pain slightly better, appetite still minimal, no nausea/vomiting, voiding ok, still with swelling and tenderness febrile overnight and this morning) Review of Systems 10-point ROS is otherwise unremarkable Physical Examination - Vital Signs Temperature: 100.6 F Blood Pressure: 131/69 Pulse: 83 Respirations: 20 Pulse Ox (%): 98 Assessment & Plan Physician Review Additional Text: Physical Exam General: Alert, Oriented x3, appears uncomfortable at times HEENT: Mucous membr. moist/pink, Sclerae nonicteric Respiratory: Clear to auscultation bilaterally, Normal air movement Cardiovascular: No edema, Regular rate/rhythm, Normal S1 S2 Gastrointestinal: Soft and benign, Non-distended, mild-moderate suprapubic tenderness : erythematous scrotum, R scrotum swollen/tender, warm Neurological: Normal speech, Normal strength at 5/5 x4 extr, Normal affect Problem list Sepsis secondary to Right epididymo-orchitis Diabetes mellitus type 2, noninsulin dependent with neuropathy Insomnia -sepsis without severe sepsis, improved, BP stable, febrile this morning -tolerating PO, dc IVF, advance diet as tolerated -continue Levaquin and Rocephin -slowly improving -f/u cultures -glc high, A1c >10, continue SSI / accucheks VTE: lovenox Code: full Dispo: anticipate dc home in ~24hrs Time Spent Managing Pts Care (In Minutes): 35
[2021-03-31] MEDS: INSULIN -REGULAR HUMAN 50 UNIT/0.5 ML ML SQ SCH ×4 (07:58→22:06)
[2021-03-31] MEDS: Levofloxacin 750mg IV 750 MG/150 ML BAG IV SCH (07:59)
[2021-03-31] MEDS: HYDROCODONE/APAP 5/325 MG TAB PO PRN ×2 (07:59→16:24)
[2021-03-31] MEDS: ENOXAPARIN 40 MG/0.4 ML SQ SCH (07:59)
[2021-03-31] MEDS: CEFTRIAXONE/SWI 1gm 1 GM/10 ML SYR IV SCH (08:03)
[2021-03-31] MEDS ORDERED: POTASSIUM CL SA 10 MEQ TAB PO ONE (09:00)
[2021-03-31] MEDS: DOXEPIN HCL 25 MG CAP PO SCH (22:05)
[2021-04-01] MEDS: HYDROCODONE/APAP 5/325 MG TAB PO PRN ×3 (03:30→21:18)
[2021-04-01] MEDS: CEFTRIAXONE/SWI 1gm 1 GM/10 ML SYR IV SCH (07:55)
[2021-04-01] MEDS: ENOXAPARIN 40 MG/0.4 ML SQ SCH (07:55)
[2021-04-01] MEDS: Levofloxacin 750mg IV 750 MG/150 ML BAG IV SCH (07:56)
[2021-04-01] MEDS: INSULIN -REGULAR HUMAN 50 UNIT/0.5 ML ML SQ SCH ×4 (09:10→21:19)
--- NOTE | 2021-04-01 17:10 | P.PN ---
Subjective Date of Service: 04/01/21 Chief Complaint: Epididymo-orchitis, sepsis Patient complaining of uncontrolled pain in the scrotum. The scrotum is still significantly swollen, tender and red. No fever today. Physical Examination - Vital Signs Temperature: 98.1 F Blood Pressure: 132/67 Pulse: 69 Respirations: 16 Pulse Ox (%): 99 - Physical Exam General: Alert, Moderate distress (Due to pain) Neck: Supple, JVD not distended Respiratory: Clear to auscultation bilaterally, Normal air movement Cardiovascular: No edema, Regular rate/rhythm, Normal S1 S2 Gastrointestinal: Normal bowel sounds, Soft and benign, Non-distended, No tenderness Musculoskeletal: No swelling, No tenderness Integumentary: Erythema (Scrotum) Neurological: Normal strength at 5/5 x4 extr External genitalia: Tenderness (Scrotum) - Studies Microbiology Data (last 24 hrs): 03/29/21 14:07 Clean Catch Urine [place] Count - Final No growth. 03/29/21 14:07 Clean Catch Urine - Final No growth. Assessment And Plan Physician Review Additional Text: Problem list Sepsis secondary to Right epididymo-orchitis Diabetes mellitus type 2, noninsulin dependent with neuropathy Insomnia -sepsis improved. -tolerating PO, dc IVF, advance diet as tolerated -continue Levaquin and Rocephin -slowly improving -Cultures-no growth to date. -glc high, A1c >10, continue SSI / accucheks. Target fingerstick glucose of less than 200. -pain management. Add Toradol for acute inflammation. VTE: lovenox Code: full
[2021-04-01] MEDS ORDERED: D50W 25 GM/50 ML SYRINGE IV PRN (17:12)
[2021-04-01] MEDS ORDERED: GLUCAGON 1 MG/VIAL IM PRN (17:12)
[2021-04-01] MEDS: METFORMIN HCL 500 MG TAB PO SCH (21:18)
[2021-04-01] MEDS: DOXEPIN HCL 25 MG CAP PO SCH (21:18)
[2021-04-02] MEDS: HYDROCODONE/APAP 5/325 MG TAB PO PRN (03:16)
[2021-04-02 04:06] LABS: Absolute Lymphocytes (CBC) 1.6 K/uL (0.7-4.9); Basophils % 0.3 % (0-1.3); Hematocrit 37.8 % (39.6-49.0); Lymphocytes % 14.6 % (15.3-44.8); MPV 8.2 fL (7.6-11.3); RBC Red Blood Cell Count 4.47 M/uL (4.33-5.43)
[2021-04-02 04:38] LABS: Blood Morphology Comment NOT SEEN (NOT SEEN); Platelet Estimate ADEQ
[2021-04-02 04:43] LABS: BUN Blood Urea Nitrogen 7 mg/dL (7-18); Bicarbonate 27 mmol/L (21-32); Glucose Level 187 mg/dL (74-106); Potassium 3.7 mmol/L (3.5-5.1); Sodium Level 139 mmol/L (136-145)
[2021-04-02] MEDS ORDERED: POTASSIUM CL SA 10 MEQ TAB PO ONE (05:00)
[2021-04-02] MEDS ORDERED: INSULIN 70/30 100 UNITS/ML SQ SCH (07:30)
[2021-04-02] MEDS: Levofloxacin 750mg IV 750 MG/150 ML BAG IV SCH (07:32)
[2021-04-02] MEDS: ENOXAPARIN 40 MG/0.4 ML SQ SCH (07:33)
[2021-04-02] MEDS: CEFTRIAXONE/SWI 1gm 1 GM/10 ML SYR IV SCH (07:33)
[2021-04-02] MEDS: METFORMIN HCL 500 MG TAB PO SCH (07:33)
[2021-04-02] MEDS: INSULIN -REGULAR HUMAN 50 UNIT/0.5 ML ML SQ SCH ×2 (08:26→11:30)
[2021-04-02 08:59] VITALS: BP 119/69; TEMP 98.5
[2021-04-02 10:33] VITALS: O2SAT 98
--- NOTE | 2021-04-02 11:29 | P.DS ---
Admission Date: 03/29/21 Discharge Date: 04/02/21 Disposition: ROUTINE DISCHARGE Discharge Condition: FAIR Reason for Admission: Epididymo-orchitis, sepsis - Problems (1) Epididymo-orchitis Current Visit: Yes Status: Acute (2) DM type 2 (diabetes mellitus, type 2) Current Visit: Yes Status: Chronic Brief History of Present Illness: 60-year-old gentleman with a history of non insulin-dependent DM type 2, neuropathy, history of prior bladder infection presented to the emergency depa rtment with a complaint of worsening dysuria, suprapubic pain, 3 days of scrotal swelling and left testicular. Patient was prescribed cephalexin 3 days prior. His symptoms got worse, he developed fever and more pain. Symptoms associated with nausea and vomiting. This was slightly tachycardic in the ED and. Blood work showed leukocytosis, lactate of 2.1. Scrotal ultrasound showed findings consistent with rise epididymo-orchitis. Patient diagnosed with sepsis and epididymo-orchitis, and admitted for further management. Hospital Course: Patient admitted to the medical floor and started on aggressive antibiotic therapy with IV Rocephin and Levaquin. Blood cultures yielded no growth. Urine culture no growth. He had intermittent fever for a couple of days and then it resolved. His scrotal swelling and edema and pain gradually improved with IV antibiotics. Patient was hyperglycemic during the hospital stay. Hemoglobin A1c is 10. His home dose metformin resumed. Glimepiride added to improve blood glucose. Patient has clinically improved. The epididymo-orchitis has responded to the current antibiotics. Patient is discharged with levaquin to complete 14 days of antibiotics. Vital Signs/Physical Exam: Temp Pulse Resp BP Pulse Ox 98.5 F 68 17 119/69 98 04/02/21 08:00 04/02/21 08:00 04/02/21 08:00 04/02/21 08:00 04/02/21 08:00 General: Alert, In no apparent distress, Oriented x3 HEENT: Normocephalic, Mucous membr. moist/pink, Sclerae nonicteric Neck: Supple, JVD not distended Respiratory: Clear to auscultation bilaterally, Normal air movement Cardiovascular: No edema, Regular rate/rhythm, Normal S1 S2 Gastrointestinal: Normal bowel sounds, Soft and benign, Non-distended, No tenderness Musculoskeletal: No swelling, No tenderness Integumentary: No rashes, No erythema Neurological: Normal speech, Normal strength at 5/5 x4 extr External genitalia: Other (Right testicular swelling, tenderness and erythema have improved significantly.) Laboratory Data at Discharge: WBC 10.80 K/uL (4.3-10.9) 04/02/21 03:39 Hgb 13.6 g/dL (13.6-17.9) 04/02/21 03:39 Hct 37.8 % (39.6-49.0) L 04/02/21 03:39 Plt Count 241 K/uL (152-406) D 04/02/21 03:39 PT 14.0 SECONDS (9.5-12.5) H 03/29/21 12:46 INR 1.21 03/29/21 12:46 APTT 26.6 SECONDS (24.3-36.9) 03/29/21 12:46 Sodium 139 mmol/L (136-145) 04/02/21 03:39 Potassium 3.7 mmol/L (3.5-5.1) 04/02/21 03:39 BUN 7 mg/dL (7-18) 04/02/21 03:39 Creatinine 0.67 mg/dL (0.55-1.3) 04/02/21 03:39 Glucose 187 mg/dL (74-106) H 04/02/21 03:39 Magnesium 2.0 mg/dL (1.8-2.4) 03/31/21 03:42 Total Bilirubin 1.0 mg/dL (0.2-1.0) 03/31/21 03:42 AST 24 U/L (15-37) 03/31/21 03:42 ALT 30 U/L (12-78) 03/31/21 03:42 Alkaline Phosphatase 89 U/L (45-117) 03/31/21 03:42 Home Medications: Doxepin HCl [Sinequan*] 1 tab PO BEDTIME 03/29/21 Gabapentin 2 tab PO BEDTIME 03/29/21 Metformin HCl [Glucophage] 1 tab PO BID 03/29/21 Glimepiride 1 mg PO DAILY #30 tablet 04/02/21 Ibuprofen [Motrin Ib] 400 mg PO TID #100 tablet 04/02/21 levoFLOXacin [Levaquin] 500 mg PO DAILY #10 tab 04/02/21 New Medications: Glimepiride 1 mg PO DAILY #30 tablet levoFLOXacin [Levaquin] 500 mg PO DAILY #10 tab Ibuprofen [Motrin Ib] 400 mg PO TID #100 tablet Diet: ADA Activity: Ad dominga Followup: NONE,NONE [Primary Care Provider] - 1-2 Weeks (Call and schedule for appointment) Time spent managing pt's care (in minutes): 33
[2021-04-02 17:23] LABS: C.trachomatis RNA,TMA Not Detected (Not Detected)
== END 2021-04-02 13:30 | disposition home or self-care (01) | DRG 872 ==
LOC: ER 11:43 → ERHOLD 16:02 → 4TH 17:14
PROVIDERS: ADMIT Hospitalist; ATTEND Internal Medicine
DX: A41.9 Sepsis, unspecified organism (principal); N45.3 Epididymo-orchitis; E11.40 Type 2 diabetes mellitus with diabetic neuropathy, unspecified; E11.65 Type 2 diabetes mellitus with hyperglycemia; G47.00 Insomnia, unspecified; Z87.891 Personal history of nicotine dependence; Z79.84 Long term (current) use of oral hypoglycemic drugs; Z79.899 Other long term (current) drug therapy; Z20.822 Contact with and (suspected) exposure to COVID-19
CPT/HCPCS: 36415; 74177; 76870; 80048; 80053; 81003; 81015; 82947; 83036; 83605; 83735; 84145; 85025; 85610; 85730; 86140; 87040; 87086; 87088; 87490; 87590; 93005; 94760; 96361; 96365; 96375; 99285; J0696; J0744; J1170; J1650; J1815; J2175; J2405; J7030; Q9967; U0003